=== PATIENT | female | born 1995 | race African-American/Black ===

== ENCOUNTER 2021-11-21 14:17 | Emergency (ER) | payer MEDICAID, SELFPAY ==
[2021-11-21] VITALS (8 sets, daily range): BP systolic 98–118; BP diastolic 53–74; PULSE 62–81; RESP 16–18; TEMP 36.8; O2SAT 98–100; BMI 37.6
--- NOTE | 2021-11-21 14:18 | PC.NURSE ---
ER at beside
--- NOTE | 2021-11-21 14:22 | HMH.EDGENADL ---
ED Disposition Clinical Impression: Intentional overdose Qualifiers: Encounter type: initial encounter Qualified Code(s): T50.902A - Poisoning by unspecified drugs, medicaments and biological substances, intentional self-harm, initial encounter Disposition: Still a Patient Condition on Discharge: Good Referrals: Provider,Referral, [Primary Care Provider] - - Critical Care Critical Care Time: No Attestation: On , the high probability of a clinically significant, sudden or life threatening deterioration of the following system(s) required my full and direct attention, intervention and personal management. The time I documented below is in addition to time spent performing reported procedures but includes the following listed in this critical care notation. Medical Decision Making - Medical Records Medical records reviewed: Yes: I reviewed the patient's medical records. - Brandon Inquiry Pt receiving controlled substance: No Vital Signs: 11/21/21 14:19 11/21/21 14:55 11/21/21 15:00 Temperature 98.3 F Temperature Source Oral Pulse Rate 78 64 Pulse Rate [Right Radial] 81 Respiratory Rate 16 16 Blood Pressure 110/68 113/74 Blood Pressure [Right Arm] 107/65 L Blood Pressure Mean 87 Blood Pressure Mean [Right Arm] 79 Blood Pressure Source Automatic Cuff Blood Pressure Source [Right Arm] Automatic Cuff Blood Pressure Position Sitting Blood Pressure Position [Right Arm] Sitting 02 Sat by Pulse Oximetry 100 100 98 Oxygen Delivery Method Room Air Room Air Room Air 11/21/21 16:31 11/21/21 16:49 11/21/21 17:01 Temperature Temperature Source Pulse Rate 62 71 72 Pulse Rate [Right Radial] Respiratory Rate 16 16 16 Blood Pressure 118/53 L 103/55 L Blood Pressure [Right Arm] Blood Pressure Mean 71 Blood Pressure Mean [Right Arm] Blood Pressure Source Blood Pressure Source [Right Arm] Blood Pressure Position Blood Pressure Position [Right Arm] 02 Sat by Pulse Oximetry 100 99 100 Oxygen Delivery Method Room Air Room Air Room Air 11/21/21 18:00 Temperature Temperature Source Pulse Rate 75 Pulse Rate [Right Radial] Respiratory Rate Blood Pressure 106/61 L Blood Pressure [Right Arm] Blood Pressure Mean Blood Pressure Mean [Right Arm] Blood Pressure Source Blood Pressure Source [Right Arm] Blood Pressure Position Blood Pressure Position [Right Arm] 02 Sat by Pulse Oximetry 99 Oxygen Delivery Method - Lab Data Lab Results 11/21/21 14:40: WBC 11.7 H, RBC 4.33, Hgb 12.2, Hct 37.3, MCV 86.1, MCH 28.2, MCHC 32.7, RDW 15.0, Plt Count 449 H, MPV 8.1, Neut % (Auto) 80.1 H, Lymph % (Auto) 14.5, [place] % (Auto) 2.4, Eos % (Auto) 0.7, Baso % (Auto) 2.3 H, Neut # (Auto) 9.4 H, Lymph # (Auto) 1.7, [place] # (Auto) 0.3, Eos # (Auto) 0.1, Baso # (Auto) 0.3 H 11/21/21 14:40: Sodium 140, Potassium 3.8, Chloride 103, Carbon Dioxide 25, Anion Gap 15.8 H, BUN 9, Creatinine 0.70, Estimated Creat Clear 231, Estimated GFR 100, Est GFR ( Amer) 121, Glucose 155 H, Calcium 9.8, Total Bilirubin 0.2, AST 45 H, ALT 46, Alkaline Phosphatase 106, Total Protein 8.3 H, Albumin 4.8, Globulin 3.5 H, Albumin/Globulin Ratio 1.4, Salicylates 27.3 H, Acetaminophen 30 11/21/21 14:40: Plasma/Serum Alcohol < 10 11/21/21 15:11: SARS-CoV-2 (PCR) Not detected, Influenza A Untype (PCR) Not detected, Influenza Type B (PCR) Not detected 11/21/21 15:58: Salicylates 26.7 H, Acetaminophen 30 11/21/21 16:42: Urine Color Yellow, Urine Appearance Clear, Urine pH 7.0, Ur Specific Arjay 1.025, Urine Protein Trace, Urine Glucose (UA) Negative, Urine Ketones Negative, Urine Blood 2+, Urine Nitrate Negative, Urine Bilirubin Negative, Urine Urobilinogen 0.2, Ur Leukocyte Esterase Negative, Urine RBC 10-20, Urine WBC 5-10, Ur Squamous Epith Cells 3-5, Urine Bacteria 1+ 11/21/21 16:42: Urine HCG, Qual Negative 11/21/21 16:42: Urine Opiates Screen Negative, Urine Methadone Screen Negative, Ur Barbituates Scre
--- NOTE | 2021-11-21 14:31 | PC.NURSE ---
spoke with Cecily at poison control pt states she took Excedrin migraine took 12 tabs at 10 am and 8 tabs at noon she advised me she is well under toxic levels she advised us to check tylenol and salicylate levels 4 hr after injestion so that needs to be done at 1600 hrs .
--- NOTE | 2021-11-21 14:47 | PC.NURSE ---
SPOKE WITH ALBA SHE ADVISES ME THAT IF SHE TOOK PILLS SHE WOULD RECOMMEND IN-PT PSYCH , ALSO SINCE SHE HAS BEEN OUT OF HER MEDS FOR 4 WEEKS THEY WILL NEED TO REGULATE THAT
--- NOTE | 2021-11-21 14:55 | PC.NURSE ---
pt reports unable to void at this time
[2021-11-21 15:00] LABS: Basophils # 0.3 K/mm3 (0-0.2); Basophils % 2.3 % (0.1-2.0); Eosinophils # 0.1 K/mm3 (0.0-0.4); Eosinophils % 0.7 % (0.1-12.0); Hematocrit 37.3 % (37.0-47.0); Hemoglobin 12.2 g/dL (12.2-16.2); Lymphocytes # 1.7 K/mm3 (0.7-4.5); Lymphocytes % 14.5 % (10-50); Mean Corpuscular HGB Conc 32.7 g/dL (31.8-35.4); Mean Corpuscular Hemoglobin 28.2 pg (27.0-31.2); Mean Corpuscular Volume 86.1 fl (81-99); Mean Platelet Volume 8.1 fl (7.4-10.4); Monocytes # 0.3 K/mm3 (0.1-1.0); Monocytes % 2.4 % (1.7-9.3); Neutrophils # 9.4 K/mm3 (1.8-7.8); Neutrophils % 80.1 % (37.0-80.0); Platelet Count 449 K/mm3 (142-424); Red Blood Count 4.33 M/mm3 (4.20-5.40); White Blood Count 11.7 K/mm3 (4.8-10.8)
--- NOTE | 2021-11-21 15:00 | PC.NURSE ---
pt reports she has previously been at [facility] for inpatient treatment, pt reports she would be agreeance with going to [facility] again for treatment. Will notify CAITY ORELLANA
[2021-11-21 15:11] LABS: Chloride 103 mmol/L (98-107)
[2021-11-21 15:12] LABS: Potassium 3.8 mmoL/L (3.5-5.1); Sodium 140 mmol/L (136-145)
[2021-11-21 15:14] LABS: Alanine Aminotransferase 46 U/L (12-78); Anion Gap 15.8 mEq/L (5-15); Aspartate Amino Transferase 45 U/L (14-36); Blood Urea Nitrogen 9 mg/dl (7-17); Carbon Dioxide 25 mmol/L (22.0-30.0); Creatinine Clearance Estimated 231 mL/min (50-200); Estimated Glomerular Filt Rate 100 ml/min (>60); GFR (African American) 121 ML/MIN (>60)
[2021-11-21 15:15] LABS: Acetaminophen 30 ug/ml (10-30); Albumin Level 4.8 g/dl (3.5-5.0); Albumin/Globulin Ratio 1.4 (1.1-1.8); Alkaline Phosphatase 106 U/L (38-126); Bilirubin,Total 0.2 mg/dl (0.2-1.3); Calcium 9.8 mg/dl (8.4-10.2); Ethyl Alcohol < 10 mg/dl (0-10); Globulin 3.5 g/dL (1.3-3.2); Glucose 155 mg/dl (74-100); Salicylate 27.3 mg/dL (2.0-20.0); Total Protein,Serum 8.3 g/dl (6.3-8.2)
[2021-11-21 15:46] LABS: Coronavirus 19, PCR Not Detected (NotDetected); Influenza A, PCR Not Detected (NotDetected); Influenza B, PCR Not Detected (NotDetected)
--- NOTE | 2021-11-21 15:50 | ECG_ITS ---
APPROVED REPORT Exam: Resting ECG HR:66 bpm ECG Measurements Heart Rate 66 AXES LA 187 P 26 QRSd 89 QRS 14 QT 382 T 31 QTc 396 Conclusion SINUS RHYTHM VOLTAGE CRITERIA FOR LVH [MEETS CRITERIA IN ONE OF: R(aVL), S(V1), R(V5), R(V5/V6)+S(V1)] ABNORMAL ECG UNCONFIRMED REPORT Electronically signed by : Bonifacio Bonilla MD 11/24/2021 10:33:27
--- NOTE | 2021-11-21 16:20 | PC.NURSE ---
pt sleeping at this time
[2021-11-21 16:32] LABS: Acetaminophen 30 ug/ml (10-30); Salicylate 26.7 mg/dL (2.0-20.0)
[2021-11-21 16:49] LABS: Microscopic, Urine URINE MICROSCOPIC (MICROSCOPIC)
--- NOTE | 2021-11-21 16:49 | PC.NURSE ---
pt to restroom, urine specimen sent to lab
[2021-11-21 16:58] LABS: Appearance,Urine CLEAR (Clear); Bilirubin,Urine Negative (Negative); Blood, Urine 2+ (Negative); Color,Urine YELLOW (Yellow); Glucose,Urine (UA) Negative (Negative); Ketones,Urine Negative (Negative); Leukocyte Esterase,Urine Negative (Negative); Nitrate,Urine Negative (Negative); Protein,Urine TRACE (Negative); Specific Gravity, Urine 1.025 (1.005-1.030); Urine Pregnancy, HCG Qual. Negative (Negative); Urobilinogen,Urine 0.2 EU/dl (0.2)
--- NOTE | 2021-11-21 17:01 | PC.NURSE ---
during triage assessment pt reports to me her actions today were in attempt to get attention from her therapist. Pt reports her therapist will soon be going out of town for 3 weeks and she was really hoping to see her today .
--- NOTE | 2021-11-21 17:03 | PC.NURSE ---
Talked to poison control, gave them update on labs and ekg, etc. by their standards she is good to be medically cleared.
[2021-11-21 17:11] LABS: Amphetamine/Metha Screen,Urine Negative ng/ml (<1000)
[2021-11-21 17:12] LABS: Barbiturates Screen,Urine Negative ng/ml (<200); Benzodiazepines Screen,Urine Negative ng/ml (<200)
[2021-11-21 17:13] LABS: Cannabinoid Screen,Urine Negative ng/ml (<50); Cocaine Screen,Urine Negative ng/ml (<300)
[2021-11-21 17:14] LABS: Methadone Screen,Urine Negative ng/ml (<300)
[2021-11-21 17:15] LABS: Opiate Screen,Urine Negative ng/ml (<300)
[2021-11-21 17:16] LABS: Phencyclidine Screen,Urine Negative ng/ml (<25)
--- NOTE | 2021-11-21 17:17 | PC.NURSE ---
contacted jada finn, spoke Mahnaz, states she will give me a call back. States she may do an assessment with pt over the phone or zoom.
--- NOTE | 2021-11-21 17:49 | PC.NURSE ---
contacted jada finn at this time r/t no call back. Staff states Richelle is now doing intakes, states she is currently with another pt. Took my call back number for her to return my call.
--- NOTE | 2021-11-21 17:52 | PC.NURSE ---
offered pt supper tray, she declined states shes not hungry.
[2021-11-21 18:00] LABS: Bacteria,Urine 1+ /lpf
--- NOTE | 2021-11-21 18:27 | PC.NURSE ---
report given to cesar,rn
--- NOTE | 2021-11-21 18:36 | PC.NURSE ---
jada finn called and requested paperwork and face sheet on pt. faxed at [phone]
--- NOTE | 2021-11-21 20:56 | PC.NURSE ---
pt accepted to [facility] was contacted and we are awaiting pd transport
--- NOTE | 2021-11-21 21:37 | PC.NURSE ---
Report called to [facility] awaiting [facility] transport
--- NOTE | 2021-11-21 22:24 | PC.NURSE ---
Called dispatch to get an update on transportation. They advised that the diesel roller operator was working on something at this time but it shouldn't be too long.
--- NOTE | 2021-11-21 22:26 | PC.NURSE ---
Updated pt on POC. No new needs at this time.
--- NOTE | 2021-11-21 23:28 | PC.NURSE ---
Pt given applesauce and kanika crackers
[2021-11-22 01:24] VITALS: BP 130/71; PULSE 79; O2SAT 99
--- NOTE | 2021-11-22 01:46 | PC.NURSE ---
Officer Stevenson with [facility] picked up pt for transfer and ALICIA Sawyer from [facility] was called to be made aware of pt departure
[2021-11-22 01:52] VITALS: BP 130/71; PULSE 79; RESP 16; TEMP 36.8; O2SAT 99
== END 2021-11-22 01:56 ==
PROVIDERS: Emergency Provider Emergency Medicine
DX: T50.902A Poisoning by unspecified drugs, medicaments and biological substances, intentional self-harm, initial encounter (principal)
CPT/HCPCS: 80053; 80305; 80329; 81001; 81025; 85025; 93005; 99284; C9803; U0003; U0005